=== PATIENT | male | born 2000 | race African-American/Black ===

== ENCOUNTER 2020-02-26 18:24 | Emergency (ER) | payer OTHER ==
[~2020-02-26] VITALS: Ht 175.3 cm; Wt 62.6 kg
[2020-02-26] MEDS ORDERED: DOXYCYCLINE 10100 MG PO (20:16)
[2020-02-26 20:50] VITALS: BP 139/91
== END 2020-02-26 20:50 | disposition home or self-care (01) ==
LOC: ER 18:24
DX: L02.411 Cutaneous abscess of right axilla (principal)

== ENCOUNTER 2020-02-29 19:12 | Emergency (ER) | payer OTHER ==
[~2020-02-29] VITALS: Ht 175.3 cm; Wt 62.6 kg
[~2020-02-29 19:12] MED LIST: DOXYCYCLINE 10100 MG PO
[2020-02-29 20:09] VITALS: BP 110/50
== END 2020-02-29 20:10 | disposition home or self-care (01) ==
LOC: ER 19:12
DX: L02.411 Cutaneous abscess of right axilla (principal); Z79.2 Long term (current) use of antibiotics